=== PATIENT | male | born 1995 | race Caucasian/White ===

== ENCOUNTER 2018-01-29 10:16 | Emergency (ER) | payer OTHER ==
[~2018-01-29] VITALS: Ht 177.8 cm; Wt 65.8 kg
[2018-01-29 10:25] VITALS: Ht 177.8 cm; Wt 65.8 kg
[2018-01-29] MEDS ORDERED: SODIUM CHLORIDE 0.9% 1000ML 1,000 ML IV STA (10:35)
[2018-01-29] MEDS ORDERED: ONDANSETRON INJ 2 MG/ML 2 ML VIAL IV STA (10:47)
[2018-01-29] MEDS ORDERED: ONDANSETRON 4MG OD TAB PO ONE (11:00)
[2018-01-29] MEDS ORDERED: LORA10TA6 PO (11:07)
[2018-01-29 11:09] LABS: BASO % 0.1 %; BASO ABS # 0.02 K/uL (0-0.2); EOS % 0.5 %; EOS ABS # 0.08 K/uL (0-0.5); HEMATOCRIT 43.6 % (42-52); HEMOGLOBIN 15.9 g/dL (14.0-18.0); IG# 0.25 K/uL (0.00-0.02); LYMPH % 16.9 %; LYMPH ABS # 2.85 K/uL (1.2-3.4); MEAN CELL VOLUME 90.8 fL (80-100); MEAN CORPUSCULAR HEMOGLOBIN 33.1 pg (25-34); MEAN CORPUSCULAR HGB CONC 36.5 g/dl (32-36); MONO % 4.6 %; MONO ABS # 0.78 K/uL (0.11-0.59); NEUT % 76.4 %; NEUT ABS # 12.85 K/uL (1.4-6.5); PLATELET COUNT 227 K/uL (130-400); RED CELL DISTRIBUTION WIDTH CV 12.6 % (11.5-14.5); RED CELL DISTRIBUTION WIDTH SD 42.2 fL (36.4-46.3); WHITE BLOOD COUNT 16.83 K/uL (4.8-10.8)
[2018-01-29 11:32] LABS: ALBUMIN 4.2 gm/dl (3.4-5.0); CALCIUM 8.8 mg/dl (8.5-10.1); CREATININE 1.22 mg/dl (0.60-1.40); POTASSIUM 3.9 mmol/L (3.5-5.1)
--- NOTE | 2018-01-29 11:37 | DIAGNOSTIC IMAGING REPORT ---
HEAD WITHOUT CONTRAST (CT) CT DOSE: 614.27 mGy.cm HISTORY: Mental status change seizure TECHNIQUE: Multiaxial CT images of the head were performed without the use of intravenous contrast. A dose lowering technique was utilized adhering to the principles of ALARA. Comparison: None. Findings: The paranasal sinuses and mastoid air cells are clear. The calvarium and skull base are intact. The ventricles and sulci are within normal limits. There is no mass, hematoma, midline shift, or acute infarct. Impression: No acute intracranial abnormality. The above report was generated using voice recognition software. It may contain grammatical, syntax or spelling errors. Electronically signed by: Giovany Hernandez M.D. 01/29/2018 11:36 AM Dictated Date/Time: 01/29/2018 11:35 AM
[2018-01-29 11:41] LABS: TOTAL PROTEIN 7.3 gm/dl (6.4-8.2)
[2018-01-29 11:46] VITALS: O2SAT 100
[2018-01-29 13:32] VITALS: BP 147/84; PULSE 83; O2SAT 97
--- NOTE | 2018-01-29 18:35 | EMERGENCY ROOM VISIT NOTE ---
History Report prepared by Luceroibkaley: Philip Qureshi Under the Supervision of: Dr. Isidro Valdez M.D. First contact with patient: 10:35 Chief Complaint: SEIZURE Stated Complaint: SEIZURE History of Present Illness The patient is a 22 year old male who presents to the Emergency Room with complaints of an episode of generalized seizure-like activity occurring shortly prior to arrival. His episode occurred in his bedroom this morning. His episode was witnessed by his roommate. The patient states that he felt normal yesterday and earlier this week. He is a student, but denies decreased sleep last week but has had increased stress due to finals. He states that his sleep has been irregular timing recently. He pulled an all nighter two nights ago, then slept during the day yesterday before going to bed early last night. The patient denies drug or alcohol use. He currently complains of back pain and nausea. He states that he vomited once this morning after the episode. Pt denies LOC, tongue bite, loss of bowel or bladder continence, headache, fevers, chills, diaphoresis, visual changes, neck pain, chest pain, breathing difficulties, nausea, vomiting, abdominal pain, melena, hematochezia, urinary symptoms, numbness, weakness, lymphadenopathy, rash, or other complaints. He states that he feels very thirsty and hungry. The patient has no known history of seizures. Source of History: patient Onset: Shortly prior to arrival Position: other (generalized) Quality: other (seizure-like activity) Timing: other (episode) Associated Symptoms: + nausea, + back pain Review of Systems See HPI for pertinent positives and negatives. A total of ten systems were reviewed and were otherwise negative. Past Medical & Surgical Medical Problems: (1) No Known Active Medical Problems Family History No pertinent family history stated. Social History Smoking Status: Never Smoker Housing Status: lives with roommate Occupation Status: [employer] student Current/Historical Medications Scheduled PRN Loratadine (Claritin), 10 MG PO DAILY PRN for Allergic Reaction Allergies Uncoded Allergies: SEASONAL ALLERGIES (Adverse Reaction, Severe, HIVES/ITCHY WATERY EYES, ) Physical Exam Vital Signs Date Time Temp Pulse Resp B/P (MAP) Pulse Ox O2 Delivery O2 Flow Rate FiO2 01/29/18 13:32 83 16 147/84 97 01/29/18 12:41 85 16 133/84 98 Room Air 01/29/18 11:46 100 Room Air 01/29/18 11:46 66 18 136/76 100 Room Air 01/29/18 10:49 76 01/29/18 10:25 68 20 133/81 99 Room Air Physical Exam GENERAL: Awake, alert, well-appearing, mildly uncomfortable appearing, in no distress HENT: Normocephalic, atraumatic. Oropharynx unremarkable. EYES: Normal conjunctiva. Sclera non-icteric. PERRL. EOMI. NECK: Supple. No nuchal rigidity. FROM. No masses. RESPIRATORY: Clear to auscultation. No wheezes. No rales. Normal respiratory effort. CARDIAC: Normal rate. Normal rhythm. No murmurs. No rubs. Extremities warm and well perfused. Pulses equal. No JVD. GI: Soft, non-distended. No tenderness to palpation. No rebound or guarding. No masses. RECTAL: Deferred. MUSCULOSKELETAL: Atraumatic. Chest examination reveals no tenderness. The back is symmetrical on inspection without obvious abnormality. There is no CVA tenderness to palpation. No joint edema. LOWER EXTREMITIES: Calves are equal size bilaterally and non-tender. No edema. No discoloration. NEURO: Normal sensorium. No sensory or motor deficits noted. Normal rapid alternating movements. No drift. Normal heel to benton. SKIN: No rash or jaundice noted. Medical Decision & Procedures ER Provider Diagnostic Interpretation: Radiology results as stated below per my review and radiologist interpretation: HEAD WITHOUT CONTRAST (CT) Findings: The paranasal sinuses and mastoid air cells are clear. The calvarium and skull base are intact. The ventricles and sulci are within normal limits. There is no mass, hematoma, midline shift, or acute infarct. Impression: No acute intracranial abnormality. The above report was generated using voice recognition software. It may contain grammatical, syntax or spelling errors. Electronically signed by: Giovany Hernandez M.D. 01/29/2018 11:36 AM Laboratory Results 01/29/18 10:56 Red Blood Count 4.80, Mean Corpuscular Volume 90.8, Mean Corpuscular Hemoglobin 33.1, Mean Corpuscular Hemoglobin Concent 36.5, Mean Platelet Volume 9.0, Neutrophils (%) (Auto) 76.4, Lymphocytes (%) (Auto) 16.9, Monocytes (%) (Auto) 4.6, Eosinophils (%) (Auto) 0.5, Basophils (%) (Auto) 0.1, Neutrophils # (Auto) 12.85, Lymphocytes # (Auto) 2.85, Monocytes # (Auto) 0.78, Eosinophils # (Auto) 0.08, Basophils # (Auto) 0.02 01/29/18 10:56 Test 01/29/18 10:56 White Blood Count 16.83 K/uL (4.8-10.8) Red Blood Count 4.80 M/uL (4.7-6.1) Hemoglobin 15.9 g/dL (14.0-18.0) Hematocrit 43.6 % (42-52) Mean Corpuscular Volume 90.8 fL (80-100) Mean Corpuscular Hemoglobin 33.1 pg (25-34) Mean Corpuscular Hemoglobin Concent 36.5 g/dl (32-36) Platelet Count 227 K/uL (130-400) Mean Platelet Volume 9.0 fL (7.4-10.4) Neutrophils (%) (Auto) 76.4 % Lymphocytes (%) (Auto) 16.9 % Monocytes (%) (Auto) 4.6 % Eosinophils (%) (Auto) 0.5 % Basophils (%) (Auto) 0.1 % Neutrophils # (Auto) 12.85 K/uL (1.4-6.5) Lymphocytes # (Auto) 2.85 K/uL (1.2-3.4) Monocytes # (Auto) 0.78 K/uL (0.11-0.59) Eosinophils # (Auto) 0.08 K/uL (0-0.5) Basophils # (Auto) 0.02 K/uL (0-0.2) RDW Standard Deviation 42.2 fL (36.4-46.3) RDW Coefficient of Variation 12.6 % (11.5-14.5) Immature Granulocyte % (Auto) 1.5 % Immature Granulocyte # (Auto) 0.25 K/uL (0.00-0.02) Anion Gap 7.0 mmol/L (3-11) Est Creatinine Clear Calc Drug Dose 89.1 ml/min Estimated GFR () 97.6 Estimated GFR (Non- 84.2 BUN/Creatinine Ratio 13.5 (10-20) Calcium Level 8.8 mg/dl (8.5-10.1) Magnesium Level 2.5 mg/dl (1.8-2.4) Total Bilirubin 0.4 mg/dl (0.2-1) Direct Bilirubin 0.1 mg/dl (0-0.2) Aspartate Amino Transf (AST/SGOT) 25 U/L (15-37) Alanine Aminotransferase (ALT/SGPT) 29 U/L (12-78) Alkaline Phosphatase 75 U/L (45-117) Total Creatine Kinase 191 U/L (39-308) Total Protein 7.3 gm/dl (6.4-8.2) Albumin 4.2 gm/dl (3.4-5.0) Lipase 88 U/L (73-393) Thyroid Stimulating Hormone (TSH) 1.590 uIu/ml (0.300-4.500) Laboratory results reviewed by me Medications Administered Medications (Trade) Dose Ordered Sig/Bobo Route Start Time Stop Time Status Last Admin Dose Admin Sodium Chloride 1,000 ml @ 999 mls/hr Q1H1M STAT IV 01/29/18 10:35 01/29/18 11:35 DC 01/29/18 10:56 999 MLS/HR Ondansetron HCl (Zofran Odt) 4 mg ONE ONCE PO 01/29/18 11:00 01/29/18 11:01 DC 01/29/18 10:55 4 MG ECG Per My Interpretation Indication: other (seizure) Rate (beats per minute): 62 Rhythm: normal sinus Findings: other (No ST elevations. No PVCs. Normal intervals. No pericarditis. ) ED Course 1044: The patient was evaluated in room C5. A complete history and physical exam was performed. Ordered Sodium Chloride 1000 ml @ 999 mls/hr IV. 1100: Ordered Zofran Odt 4 mg PO. 1256: I spoke with the patients mother over the phone. I updated her on the patients situation. 1315: I reevaluated the patient. Discussed results and discharge instructions: he verbalized understanding and agreement. The patient is ready for discharge. Medical Decision Patient placed in seizure precautions immediately upon arrival. Nursing notes reviewed and agree them. The patient's history was concerning for a possible seizure. Differential diagnosis: Etiologies such as seizure, syncope, concussion, soft tissue injury, skull fracture infection, hypoglycemia, electrolyte abnormalities, cardiac sources, pulmonary embolus, intracerebral event, trauma, toxicologic, neurologic, as well as others were entertained. Physical examination: As above. Nonfocal. ER treatment provided: IV saline hydration Zofran Diagnostics interpretation by me: ECG: No interval prolongation. The labs revealed an unremarkable CBC and chemistry panel except for a mild leukocytosis which I suspect is a stress response at the patient has had no infectious symptoms leading up to this. He has no abdominal pain he has no headache or cold symptoms currently. Imaging studies: CAT scans as above. The patient presented with a seizure-like episode that occurred. He had a break of his normal sleep-wake cycle. This is a classic set up for a seizure. I did discuss this with of neurology and he was in agreement. He recommended outpatient follow-up. Seizure precautions were discussed. He did very well in the emergency department. I see no evidence of intracranial bleeding, skull fracture, myocarditis or interval prolongation such that would cause a dysrhythmia. Given the historical facts I would lean more towards a seizure for this episode and therefore neurology follow-up and outpatient EEG and MRI are necessary. The patient will be leaving town tomorrow. I did discuss all of this with his mother as well as the patient. He will have a family doctor follow-up. They can coordinate an outpatient EEG and MRI. They can also coordinate a neurology follow-up. The patient feels comfortable with the plan as does his mother. If he worsens in any way he will be back. By the evaluation outlined above emergent etiologies such as infection, hypoglycemia, electrolyte abnormalities, cardiac sources, intracerebral event, toxicologic, neurologic,as well as others were deemed relatively unlikely. The patient was counseled not to drive until cleared in follow-up. 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 The patient and mother were informed about the findings as listed above. All questions were answered and they were pleased with the treatment. Return instructions were outlined and the patient was discharged in stable condition. Outpatient prescription management: None Referral: The patient was referred back to his primary care physician for follow-up for a recheck of the current condition. Medication Reconcilliation Current Medication List: was personally reviewed by me Blood Pressure Screening Patient's blood pressure: Elevated blood pressure Blood pressure disposition: Elevated BP felt to be situational Consults Time Called: 1233 Consulting Physician: Dr. Vivar - Neurology Returned Call: [phone] Discussed the patient's case. Dr. Vivar recommends MRI, and EEG as an outpatient. Impression Primary Impression: Seizure Scribe Attestation The scribe's documentation has been prepared under my direction and personally reviewed by me in its entirety. I confirm that the note above accurately reflects all work, treatment, procedures, and medical decision making performed by me. Departure Information Dispostion Home / Self-Care Forms HOME CARE DOCUMENTATION FORM, IMPORTANT VISIT INFORMATION Patient Instructions My [facility], Seizures - [facility] Additional Instructions Seizure instructions: Do not perform any activities that could put you at risk such as climbing trees , working on ladders, being in high places, swimming, or similar until cleared by neurology in follow-up. Ibuprofen(Motrin, Advil) may be used for fever or pain. Use 600mg every six hours as needed. Take with food. Avoid using more than 2400mg in a 24 hour period. Do not use 2400mg per day for more than three consecutive days without physician direction. Prolonged inappropriate use can lead to stomach upset or ulcers. (AND/OR) Acetaminophen(Tylenol) may be used for fever or pain. Use 1000mg every six hours as needed. Avoid using more than 4000mg in a 24 hour period. Rest and drink plenty of fluids as tolerated. No driving until cleared in neurology follow-up. Return to the ER for passing out, chest pain, headache, persistent vomiting, fevers, abdominal pain, chest pains, difficulty breathing, black or bloody stools, worsening of your condition, or as needed. Follow up with your primary physician as scheduled when you return home for a recheck of your current condition, referral for neurology follow-up, outpatient EEG, and outpatient brain MRI.
== END 2018-01-29 13:33 | disposition home or self-care (01) ==
LOC: C.EDB 10:17 → C.EDC 13:33
DX: R56.9 Unspecified convulsions (principal)